=== PATIENT | male | born 1980 | race Caucasian/White ===

== ENCOUNTER 2024-05-08 13:36 | Emergency (ER) | payer BC, SELFPAY ==
[2024-05-08 13:37] VITALS: BP 163/108
--- NOTE | 2024-05-08 14:53 | ED.GENMED ---
History of Present Illness
General
Chief Complaint: Skin Problem
Source: patient
Exam Limitations: none
Time Seen by Provider: 05/08/24 14:33
Nursing documentation reviewed up to this point in time: agreed with
History of Present Illness
History of Present Illness:
pt is a 43 y/o M with L hand laceration
from a puncture from when he was workingon his tractor and slipped and cut his palm
there were some fat out of the wound and that made him nervous
tetanus is UTD
no numbness/tingling/weankess
Past History
Past History
ED Past Medical History: None
Social History
Tobacco: Non-smoker
Review of Systems
Review of Systems
Allergies reviewed?: Yes
All Other Systems: Not applicable
Phy Exam
Physical Exam
Physical Exam:
GENERAL: Alert , in no apparent distress, comfortable at rest
HEAD: NCAT
CV: cap refill itnact
NEUROLOGICAL: Alert and oriented, no focal neuro deficits, , 5/5 strength, sensation intact, ambulation slight limp right leg
SKIN: Warm and dry, laceration 0.75 cm left palm
small subcutaneous fat exposed
bleeding controlled
MUSCULOSKELETAL: small laceration lfet anterio rpalm
full rom of the hand
PSYCH: Normal and appropriate interaction.
Course
Vital Signs
Initial and Last Documented VS:
Initial Vital Signs
Temp Pulse Resp BP Pulse Ox
99.3 F 117 18 163/108 96
05/08/24 13:37 05/08/24 13:37 05/08/24 13:37 05/08/24 13:37 05/08/24 13:37
Last Documented Vital Signs
Temp Pulse Resp BP Pulse Ox
99.3 F 117 18 163/108 96
05/08/24 13:37 05/08/24 13:37 05/08/24 13:37 05/08/24 13:37 05/08/24 13:37
Procedures
Laceration Closure
Left Anterior Ulnar Hand:
Status of Wound: clean
Size of Wound in cm: 0.75
Description of Wound Edges: sharp
Preparation: cleaned with saline and cleaned with SurClens
Revision/Debridement: routine- no revision
Wound exploration: extensive cleaning of contaminated wound
Type of Closure: Dermabond-skin glue and other (sterristrip)
MDM/Problems Addressed
Differential Diagnosis Includes:
laceration, puncture wound
MDM/Problems Addressed:
43 y/o M with right hand ominance
here with left palmar laceration by grabbing onto something while hew as slipping today
laceration puncture in left palm
bleeding controlled
ful rom of hand
tetanus utd
wound irrigated
scrubbed with hibbaclens
dermabond and sterristrips
closed with bandaid
*Critical Care Note
Total Time (30-74mins, 75-104mins- exclusive of procedures): Not Applicable
ED Attending Note
-
Portions of this chart may have been created with voice recognition software.� Occasional wrong word or��sound alike� substitutions may have occurred due to the inherent limitations of voice recognition software.
Discharge Plan
Departure
Patient Disposition: Home (Routine Discharge)
Date of Disposition: 05/08/24
Time of Disposition: 15:12
Patient with high blood pressure during this ER visit?: Yes
Condition: Fair
Covid-19: Not Applicable
Discharge Problem:
Hand laceration
Instructions: Wound Care (DC)
Referrals:
NONE,* [Family Provider] -
Activity Restrictions/Additional Instructions:
YOUR WOUND WAS CLOSED WITH STERRISTRIPS AND DERMABOND
KEEP DRY FOR 48 HORUS IF POSSIBLE
THEN THE STERRISTRIPS WILL PEEL UP EVENTUALLY AND FALL OFF
WATCH FO RSIGNS OF INFECTION
Discharge Date and Time
Print Language: MAURITIAN
== END 2024-05-08 15:21 | disposition home or self-care (01) ==
LOC: EMR 13:36
PROVIDERS: EMERGENCY PHYSICIAN Emergency Medicine
DX: S61.412A Laceration without foreign body of left hand, initial encounter (principal); W26.9XXA Contact with unspecified sharp object(s), initial encounter; R03.0 Elevated blood-pressure reading, without diagnosis of hypertension
CPT/HCPCS: 99284; 12041

== ENCOUNTER → 2024-10-30 11:11 | Outpatient (REF) | payer BC, SELFPAY | LOC: RAD 11:11 | PROVIDERS: ATTENDING PHYSICIAN Physician Assistant Medical | DX: R05.3 Chronic cough (principal) | CPT/HCPCS: 71046 ==

== ENCOUNTER → 2025-04-12 14:17 | Outpatient (REF) | payer BC, SELFPAY | LOC: RAD 14:17 | PROVIDERS: ATTENDING PHYSICIAN Student in an Organized Health Care Education/Training Program | DX: R05.8 Other specified cough (principal) | CPT/HCPCS: 71046 ==

== ENCOUNTER 2025-08-02 15:54 | Emergency (ER) | payer BC, SELFPAY ==
[2025-08-02 16:09] VITALS: BP 168/103
== END 2025-08-02 19:16 | disposition left against medical advice (07) ==
LOC: EMR 15:54
DX: Z53.21 Procedure and treatment not carried out due to patient leaving prior to being seen by health care provider (principal)
CPT/HCPCS: 71101

== ENCOUNTER 2025-11-02 18:07 | Emergency (ER) | payer BC, SELFPAY ==
[2025-11-02 18:20] VITALS: BP 169/96
[2025-11-02 18:53] LABS: Hematocrit 40.3 % (39.0-52.0); Hemoglobin 13.5 g/dL (13.0-18.0); Mean Corp Hgb Conc. 33.5 g/dL (33.0-37.0); Mean Corpuscular Volume 86.3 fL (80.0-94.0); Nucleated Red Blood Cells % 0 % (-); Platelet Count 197 10^3/uL (130-400); Red Cell Dist. Width 13.5 % (11.5-14.5)
[2025-11-02 19:10] LABS: COVID-19 Antigen Negative (Negative)
[2025-11-02 19:16] LABS: ALT (SGPT) 71 U/L (0-50); AST (SGOT) 65 U/L (17-59); Albumin 4.2 g/dl (3.5-5.0); Alkaline Phosphatase 111 U/L (38-126); Blood Urea Nitrogen 14 mg/dl (9-20); Calcium 8.5 mg/dl (8.4-10.2); Carbon Dioxide 27 mmol/L (22-30); Chloride 103 mmol/L (98-107); Glucose 101 mg/dl (70-99); Potassium 4.1 mmol/L (3.5-5.1); Sodium 135 mmol/L (135-145); Total Protein 6.9 g/dl (6.3-8.2); eGFR > 60.00
[2025-11-02] MEDS: MOTRIN 600 MG PO (20:22)
[2025-11-02 21:05] VITALS: BP 130/80
[2025-11-02 21:09] VITALS: BMI 26.9
--- NOTE | 2025-11-02 21:41 | ED.GENMED ---
History of Present Illness
General
Chief Complaint: Fever
Time Seen by Provider: 11/02/25 20:58
History of Present Illness
History of Present Illness:
Patient is a 44-year-old man who is otherwise healthy presenting to the emergency department with flulike symptoms. Patient came home from a cruise 2 days ago. Family was sick with similar symptoms on the cruise. Patient is been having high
fevers chills body aches headache cough congestion. No chest pain. No shortness of breath. Patient has been trying to stay well-hydrated. He does note some dysuria. No hematuria. He has been alternating Tylenol and Motrin. He does have a
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 Does not have any similar symptoms and when he last had it. Patient does note that he has been congested with congestion worse on the right ear.
Past History
Past History
ED Past Medical History: None
Social History
Tobacco: Non-smoker
Phy Exam
Physical Exam
Physical Exam:
GENERAL: in no acute distress
HEENT: normocephalic, extraocular movements intact, moist oral mucosa, bilateral middle ear effusions
NECK: normal inspection
RESPIRATORY: no respiratory distress, clear to auscultation bilaterally
CARDIOVASCULAR: regular rate and rhythm
ABDOMEN/: soft, non-distended, non-tender to palpation, no rebound or guarding
EXTREMITIES: non-tender, no edema/swelling
NEUROLOGIC: awake and alert, moves all extremities
SKIN: warm
Sepsis
Sepsis Screening
Sepsis Assessment: Sepsis Ruled Out
Sepsis Screen
Sepsis Screen: Sepsis Ruled Out
Date: 11/02/25
Time: 23:21
Course
Orders/Labs/Results
Orders:
Orders
11/02/25 18:35
CMP [Comprehensive Metabolic Panel] Urgent
Complete Blood Count/With Diff Urgent
11/02/25 18:36
COVID-19 Antigen Urgent
Source: Nasal Swab
INF RAPID [Influenza A+B Rapid Molecular] Urgent
YASMANY Source: Nasal Swab
Specimen Description:
11/02/25 20:20
Ibuprofen [Motrin] 600 mg .ROUTE .STK-MED ONE
11/02/25 20:22
Ibuprofen [Motrin] 600 mg PO NOW STA
11/02/25 21:31
Acetaminophen [Tylenol] 1,000 mg PO NOW STA
11/02/25 22:01
Urinalysis Reflex To Culture Urgent
Date Specimen was Collected: 11/02/25
Time Specimen was Collected: 21:59
Urine Microscopic Reflex Cult Urgent
Abnormal Lab Results
11/02/25 11/02/25
18:35 22:01
WBC 4.0 L 10^3/uL
(4.8-10.8)
RBC 4.67 L 10^6/uL
(4.70-6.10)
Absolute Lymphs (auto) 0.6 L 10^3/uL
(1.2-3.4)
Lymphocytes % 15.9 L %
(20.5-51.1)
Glucose 101 H mg/dl
(70-99)
AST 65 H U/L
(17-59)
ALT 71 H U/L
(0-50)
Ur Occult Blood Reflex 1+ A
(Negative)
Urine RBC 3-6 A /HPF
(0-2)
Urine Bacteria (Reflex) Few A
(Negative)
Urine Albumin (Reflex) 3+ A
(Neg - Trace)
11/02/25 18:35
11/02/25 18:35
Vital Signs
Initial and Last Documented VS:
Initial Vital Signs
Temp Pulse Resp BP Pulse Ox
102.3 F H 97 18 169/96 97
11/02/25 18:20 11/02/25 18:20 11/02/25 18:20 11/02/25 18:20 11/02/25 18:20
Last Documented Vital Signs
Temp Pulse Resp BP Pulse Ox
98.9 F 91 16 130/80 99
11/02/25 23:05 11/02/25 21:05 11/02/25 21:05 11/02/25 21:05 11/02/25 21:43
MDM/Problems Addressed
Differential Diagnosis Includes:
Patient is a 44-year-old man presenting to the emergency department with flulike symptoms for the past 2 days. On arrival patient is febrile. Exam is otherwise reassuring. Differential considered flu versus UTI. History and exam not consistent
with pneumonia given clear breath sounds. Patient is flu positive.. Will give Tylenol and check a urinalysis. Consider chest x-ray though will hold off given clear breath sounds. Patient educated on supportive care including alternating Tylenol
and Motrin, steam, humidified air, nasal saline.
*Pulse Oximetry
SaO2: 99
Oxygen Mode of Delivery: Room air
Patient hypoxic: no
*Critical Care Note
Total Time (30-74mins, 75-104mins- exclusive of procedures): Not Applicable
Update Note
Update Note:
On reevaluation patient is afebrile. Urine does not appear infected. Will discharge patient at this time.
ED Attending Note
-
Portions of this chart may have been created with voice recognition software.� Occasional wrong word or��sound alike� substitutions may have occurred due to the inherent limitations of voice recognition software.
Discharge Plan
Departure
Patient Disposition: Home (Routine Discharge)
Date of Disposition: 11/02/25
Time of Disposition: 23:20
Patient with high blood pressure during this ER visit?: Yes
Discharge Problem:
Influenza A
Instructions: Flu in adults (DC)
Referrals:
Jose Quezada MD [Family Provider, Family Practice]
Activity Restrictions/Additional Instructions:
Thank You for choosing [facility].
It was a pleasure meeting you and taking part in your care.
You were seen in the Emergency Department today for the fluid. While you were here we performed blood work, which was reassuring. Please use supportive measures as discussed which include alternating Tylenol/Advil, nasal saline, humidified air,
Mucinex and steam.
We would like for you to follow up with your primary care physician for further evaluation. If you experience fever, worsening of your symptoms, or develop any other new or concerning symptoms, please return to the Emergency Department immediately.
Please see the attached sheet for additional information.
Interventions
Interventions:
*General Assessment Last Done: 11/02/25 21:09
*Neglect/Abuse Screening Last Done: 11/02/25 18:20
*ED COVID-19 Vaccine History Last Done: 11/02/25 21:09
*ED Influenza Vaccine History Last Done: 11/02/25 21:09
[facility] Risk Assessment Tool Last Done: 11/02/25 21:09
*Risk Screen - Suicide (C-SSRS) Last Done: 11/02/25 18:20
ED- Neurological Assessment Last Done: 11/02/25 21:09
ED-Skin Assessment Last Done: 11/02/25 21:09
Discharge Date and Time
Print Language: FINNISH
[2025-11-02] MEDS: TYLENOL 1000 MG PO (21:52)
[2025-11-02 22:16] LABS: Urine Character Clear (Clear)
[2025-11-02 22:35] LABS: Urine White Cell 0-2 /HPF (0-5)
== END 2025-11-02 23:25 | disposition home or self-care (01) ==
LOC: EMR 18:07
PROVIDERS: Emergency Medicine; EMERGENCY PHYSICIAN Student in an Organized Health Care Education/Training Program; FAMILY PHYSICIAN Student in an Organized Health Care Education/Training Program
DX: J10.1 Influenza due to other identified influenza virus with other respiratory manifestations (principal); R03.0 Elevated blood-pressure reading, without diagnosis of hypertension; R50.9 Fever, unspecified; Z20.822 Contact with and (suspected) exposure to COVID-19
CPT/HCPCS: 99283; 80053; 81003; 81015; 85025; 87502; 87811